=== PATIENT | female | born 1970 | race Caucasian/White ===

== ENCOUNTER 2018-01-29 17:39 | Emergency (ER) | payer OTHER ==
[~2018-01-29] VITALS: Ht 172.7 cm; Wt 90.7 kg
--- NOTE | ~2018-01-29 | EKG ---
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
[2018-01-29] MEDS ORDERED: LUMIGAN2.5 M1 OPHTHALMIC (17:44)
[2018-01-29] MEDS ORDERED: CEPHALEXIN500 MG PO (17:44)
[2018-01-29] MEDS ORDERED: OXYCODONE HCL 55 MG PO (21:38)
[2018-01-29] MEDS ORDERED: ZANAFLEX4 MG PO (21:38)
[2018-01-29 21:52] VITALS: BP 140/88
== END 2018-01-29 21:54 | disposition home or self-care (01) ==
LOC: EDBD 17:39 → ER 17:39
DX: M54.2 Cervicalgia (principal); M25.519 Pain in unspecified shoulder; Z90.49 Acquired absence of other specified parts of digestive tract; V43.54XA Car driver injured in collision with van in traffic accident, initial encounter; Y93.89 Activity, other specified; Y92.410 Unspecified street and highway as the place of occurrence of the external cause; Y99.8 Other external cause status